=== PATIENT | male | born 1980 | race Caucasian/White ===

== ENCOUNTER 2017-03-14 02:06 | Emergency (ER) | payer MEDICAID ==
[~2017-03-14] VITALS: Ht 165.1 cm; Wt 90.7 kg
[~2017-03-14 02:06] MED LIST: DICL75TA2; DOXY-233 PO; DOXY100C42 PO; ESOM10SU; GABA100C PO; HYDR-3816 PO; HYDR-757 PO; LORA10TA7; LRT10T; OMEP40CA36; PROP40TA5; SULF-222; TRAM50TA2 PO; VALA500T4
[2017-03-14 02:32] LABS: KETONES,URINE NEGATIVE (NEGATIVE); LEUKOCYTE ESTERASE ,URINE NEGATIVE (NEGATIVE); NITRITE,URINE NEGATIVE (NEGATIVE); PH,URINE 5 (5-9); PROTEIN,URINE 2+ (NEGATIVE); UROBILINOGEN,URINE 1 MG/DL (NORMAL)
[2017-03-14 02:40] LABS: BILIRUBIN,URINE 1+ (NEGATIVE); CALCIUM OXALATE CRYSTALS,UR LARGE /LPF
[2017-03-14] MEDS ORDERED: KETOROLAC 30 MG/ML VIAL IVP STA (02:45)
[2017-03-14] MEDS ORDERED: LACTATED RINGERS 1,000 ML IV ONE (02:45)
[2017-03-14] MEDS ORDERED: ONDANSETRON 4 MG/2 ML (SDV) Z0FRAN IVP ONE (02:45)
--- NOTE | 2017-03-14 02:45 | ED GU-Male ---
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, patient reports developing pain in his LLQ into his L testicle Source: patient History of Present Illness Time seen by provider: 02:18 Initial Comments PT STATES HE HAS BEEN MASTURBATING ALOT THE LAST COUPLE OF DAYS--AT LEAST 2-3 TIMES A DAY--WHICH HE FREQUENTLY DOES TONIGHT, DURING AND IMMEDIATELY AFTERWARD, HE BEGAN TO HAVE SEVERE PAIN IN LLQ AND LEFT TESTICLE --1 1/2-2 HOURS AGO PAIN IN TESTICLE IS GONE AT THIS TIME, BUT STILL HAS PAIN IN LLQ--PAIN IS NOT SEVERE RIGHT NOW IT WAS WHEN PAIN WAS SEVERE, HE HAD NAUSEA AND SWEATS AND "IT ALMOST MADE ME PASS OUT" HAS HAD SOME BURNING ON URINATION AND IS ONLY ABLE TO VOID VERY SMALL AMOUNTS OR NOT AT ALL, HAS URGENCY AND FREQUENCY STATES HE HAS HAD EPIDIDYMITIS IN THE PAST--FELT TO BE DUE TO FREQUENT MASTURBATION, PER PT. 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 HUDSON Allergies and Home Medications Allergies Coded Allergies: NKANo Known Allergies (Unverified Allergy, Mild, 04/23/09) Home Medications Diclofenac Sodium 75 Mg Tablet., #60 (Reported) Gabapentin 100 Mg Capsule, 1 EACH PO BID, (Reported) Hydrocodone Bit/Acetaminophen 1 Tab Tablet, 1 TAB PO Q6H PRN for PAIN, #10 Prescribed by: TOMER SANTOS on 09/22/14 0745 Loratadine 10 Mg Tablet, #30 (Reported) Omeprazole 40 Mg Capsule., #30 (Reported) Propranolol Hcl 40 Mg Tablet, #60 (Reported) Tramadol Hcl 50 Mg Tablet, 50 MG PO Q4H PRN for PAIN, #10 Ref 0 Prescribed by: FAUSTO SAL on 10/31/14 1729 Trimethoprim/Sulfamethoxazole 1 Ea Tablet, #28 (Reported) Constitutional: see HPI, diaphoresis Respiratory: no symptoms reported Cardiovascular: no symptoms reported Gastrointestinal: LLQ, see HPI, abdominal pain, nausea, No vomiting Genitourinary: see HPI, burning, dysuria, frequency, denies flank pain, pain, urgency Musculoskeletal: no symptoms reported Skin: no symptoms reported Psychiatric/Neurological: No Symptoms Reported Endocrine: No Symptoms Reported Hematologic/Lymphatic: No Symptoms Reported Past Yvuoytf-Ponkiw-[place] Hx Patient Social History Alcohol Use: Denies Use Recreational Drug Use: No Smoking Status: Never a Smoker Recent Foreign Travel: No Contact w/Someone Who Travel: No Recent Infectious Disease Expo: No Immunizations Up To Date Tetanus Booster (TDap): Unknown Surgeries HX Surgeries: Yes Surgeries: Vasectomy Respiratory Hx Respiratory Disorders: No Cardiovascular Hx Cardiac Disorders: No Neurological Hx Neurological Disorders: No Reproductive System Hx Reproductive Disorders: No Sexually Transmitted Disease: No HIV/AIDS: No Genitourinary Hx Genitourinary Disorders: Yes (EPIDIDYMITIS) Gastrointestinal Hx Gastrointestinal Disorders: Yes (IBS) Gastrointestinal Disorders: Gastroesophageal Reflux, Irritable Bowel Musculoskeletal Hx Musculoskeletal Disorders: No Endocrine Hx Endocrine Disorders: No HEENT HX ENT Disorders: No Cancer Hx Cancer: No Psychosocial Hx Psychiatric Problems: No Integumentary HX Skin/Integumentary Disorder: No Blood Transfusions Hx Blood Disorders: No Adverse Reaction to a Blood Tr: No Physical Exam Vital Signs Vital Sign - Last 12Hours 03/14/17 02:15 Temp 96.8 Pulse 82 Resp 18 B/P (MAP) 146/113 Pulse Ox 98 Capillary Refill : Less Than 3 Seconds General Appearance: other (MALODOROUS, PACING, HOLDING LLQ) Neck: normal inspection Cardiovascular: regular rate, rhythm, no murmur Respiratory: normal breath sounds, no respiratory distress, no accessory muscle use Gastrointestinal: normal bowel sounds, soft, tenderness (LLQ) Back: normal inspection Extremities: normal inspection 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, no motor/sensory deficits, alert, oriented x 3 Skin: normal color, warm/dry, tattoos/piercings (EXTENSIVE TATTOOS) Progress/Results/Core Measures Results/Orders Lab Results Laboratory Tests Test 03/14/17 02:22 03/14/17 03:00 Range/Units Urine Color YELLOW Urine Clarity CLEAR Urine pH 5 5-9 Urine Specific [place] 1.030 H 1.016-1.022 Urine Protein 2+ H NEGATIVE Urine Glucose (UA) NEGATIVE NEGATIVE Urine Ketones NEGATIVE NEGATIVE Urine Nitrite NEGATIVE NEGATIVE Urine Bilirubin 1+ H NEGATIVE Urine Urobilinogen 1 NORMAL MG/DL Urine Leukocyte Esterase NEGATIVE NEGATIVE Urine RBC (Auto) 3+ H NEGATIVE Urine RBC 10-25 H /HPF Urine WBC NONE /HPF Urine Squamous Epithelial Cells 2-5 /HPF Urine Crystals PRESENT H /LPF Urine Calcium Oxalate Crystals LARGE H /LPF Urine Bacteria NEGATIVE /HPF Urine Casts NONE /LPF Urine Mucus NEGATIVE /LPF Urine Culture Indicated NO White Blood Count 10.7 4.3-11.0 10^3/uL Red Blood Count 5.13 4.35-5.85 10^6/uL Hemoglobin 16.0 13.3-17.7 G/DL Hematocrit 47 40-54 % Mean Corpuscular Volume 91 80-99 FL Mean Corpuscular Hemoglobin 31 25-34 PG Mean Corpuscular Hemoglobin Concent 34 32-36 G/DL Red Cell Distribution Width 13.4 10.0-14.5 % Platelet Count 345 130-400 10^3/uL Mean Platelet Volume 10.3 7.4-10.4 FL Neutrophils (%) (Auto) 76 H 42-75 % Lymphocytes (%) (Auto) 14 12-44 % Monocytes (%) (Auto) 9 0-12 % Eosinophils (%) (Auto) 0 0-10 % Basophils (%) (Auto) 0 0-10 % Neutrophils # (Auto) 8.2 H 1.8-7.8 X 10^3 Lymphocytes # (Auto) 1.5 1.0-4.0 X 10^3 Monocytes # (Auto) 0.9 0.0-1.0 X 10^3 Eosinophils # (Auto) 0.0 0.0-0.3 10^3/uL Basophils # (Auto) 0.0 0.0-0.1 10^3/uL Sodium Level 139 135-145 MMOL/L Potassium Level 5.4 H 3.6-5.0 MMOL/L Chloride Level 107 98-107 MMOL/L Carbon Dioxide Level 20 L 21-32 MMOL/L Anion Gap 12 5-14 MMOL/L Blood Urea Nitrogen 11 7-18 MG/DL Creatinine 1.30 0.60-1.30 MG/DL Estimat Glomerular Filtration Rate > 60 BUN/Creatinine Ratio 8 Glucose Level 154 H 70-105 MG/DL Calcium Level 8.7 8.5-10.1 MG/DL Total Bilirubin 0.5 0.1-1.0 MG/DL Aspartate Amino Transf (AST/SGOT) 27 5-34 U/L Alanine Aminotransferase (ALT/SGPT) 20 0-55 U/L Alkaline Phosphatase 65 40-136 U/L Total Protein 7.7 6.4-8.2 GM/DL Albumin 4.1 3.2-4.5 GM/DL Amylase Level 40 25-125 U/L Lipase 31 8-78 U/L My Orders Orders - HAILEE CRONIN DO Ua Culture If Indicated (03/14/17 02:18) Ct Abd/Pelvis Wo(Kidney Stone) (03/14/17 02:45) Amylase (03/14/17 02:45) Cbc With Automated Diff (03/14/17 02:45) Comprehensive Metabolic Panel (03/14/17 02:45) Lipase (03/14/17 02:45) Acute Abd Series (03/14/17 02:45) Ketorolac Injection (Toradol Injection) (03/14/17 02:45) Ondansetron Injection (Zofran Injectio (03/14/17 02:45) Saline Lock/Iv-Start (03/14/17 02:45) Lactated Ringers (Lr 1000 Ml Iv Solution (03/14/17 02:45) Medications Given in ED Current Medications Medications Dose Ordered Sig/Rajni Route Start Time Stop Time Status Last Admin Dose Admin Lactated Ringer's 1,000 ml @ 0 mls/hr Q0M ONCE IV 03/14/17 02:45 03/14/17 03:47 DC 03/14/17 03:19 0 MLS/HR Ondansetron HCl 4 mg ONCE ONCE IVP 03/14/17 02:45 03/14/17 03:47 DC 03/14/17 03:19 4 MG Vital Signs/I&O Vital Sign - Last 12Hours 03/14/17 03/14/17 02:15 03:58 Temp 96.8 Pulse 82 84 Resp 18 18 B/P (MAP) 146/113 Pulse Ox 98 97 Blood Pressure Mean: 124 Progress Note : Progress Note PAIN SPONTANEOUSLY WENT AWAY SHORTLY AFTER ARRIVAL Diagnostic Imaging Comments ACUTE ABDOMEN XRAYS--CALCIFICATION IN LEFT PELVIS, PENDING RADIOLOGIST REVIEW CT ABDOMEN/PELVIS--MILD LEFT HYDRONEPHROSIS, WITH 2 MM CALCULUS IN BLADDER--PER [facility] VIA FAX @ [phone] Reviewed: Reviewed by Me Departure Impression Impression: Primary Impression: PASSED LEFT KIDNEY STONE Disposition: HOME, SELF-CARE Condition: Improved Departure-Patient Inst. Referrals: [facility] (PCP/Family) Primary Care Physician Patient Instructions: Kidney Stones (DC) Add. Discharge Instructions: STRAIN ALL URINE--RETURN ANY STONES TO YOUR DR'S OFFICE LOTS OF CLEAR LIQUIDS--DRINK ENOUGH SO YOU ARE URINATING EVERY 2 HOURS WHILE AWAKE FOLLOW UP WITH YOUR DR NEEDED All discharge instructions reviewed with patient and/or family. Voiced understanding. HAILEE CRONIN DO Mar 14, 2017 02:44
[2017-03-14 03:08] LABS: BASOPHILS % (AUTO) 0 % (0-10); EOSINOPHILS % (AUTO) 0 % (0-10); LYMPHOCYTES # (AUTO) 1.5 X 10^3 (1.0-4.0); LYMPHOCYTES % (AUTO) 14 % (12-44); MEAN CORPUSCULAR HEMOGLOBIN 31 PG (25-34); MEAN CORPUSCULAR HGB CONC 34 G/DL (32-36); MEAN CORPUSCULAR VOLUME 91 FL (80-99); MEAN PLATELET VOLUME 10.3 FL (7.4-10.4); MONOCYTES # (AUTO) 0.9 X 10^3 (0.0-1.0); MONOCYTES % (AUTO) 9 % (0-12); NEUTROPHILS # (AUTO) 8.2 X 10^3 (1.8-7.8); NEUTROPHILS % (AUTO) 76 % (42-75); PLATELET COUNT 345 10^3/uL (130-400); RED BLOOD COUNT 5.13 10^6/uL (4.35-5.85); RED CELL DISTRIBUTION WIDTH 13.4 % (10.0-14.5); WHITE BLOOD COUNT 10.7 10^3/uL (4.3-11.0)
[2017-03-14 03:30] LABS: ALANINE AMINOTRANSFERASE 20 U/L (0-55); ALBUMIN 4.1 GM/DL (3.2-4.5); AMYLASE 40 U/L (25-125); ANION GAP 12 MMOL/L (5-14); ASPARTATE AMINO TRANSFERASE 27 U/L (5-34); BILIRUBIN,TOTAL 0.5 MG/DL (0.1-1.0); BLOOD UREA NITROGEN 11 MG/DL (7-18); BUN/CREATININE RATIO 8; CALCIUM 8.7 MG/DL (8.5-10.1); CARBON DIOXIDE 20 MMOL/L (21-32); CHLORIDE 107 MMOL/L (98-107); GFR ESTIMATED > 60; GLUCOSE 154 MG/DL (70-105); LIPASE 31 U/L (8-78); POTASSIUM 5.4 MMOL/L (3.6-5.0); SODIUM 139 MMOL/L (135-145); TOTAL PROTEIN 7.7 GM/DL (6.4-8.2)
[2017-03-14 03:58] VITALS: BP 132/84
--- NOTE | 2017-03-14 05:42 | Diagnostic Imaging Report ---
EXAM: ACUTE ABD SERIES INDICATION: Pain in left testicle. COMPARISON: Chest radiographs 03/29/2007. FINDINGS: Normal heart size and pulmonary vascularity. Lungs are well expanded. No focal pulmonary opacity, pleural effusion or pneumothorax. Osseous structures are unremarkable. No free intraperitoneal air. Nonspecific bowel gas pattern. IMPRESSION: No acute cardiopulmonary or abdominal radiographic findings. Dictated by: Dictated on workstation # [id number]
--- NOTE | 2017-03-14 06:30 | Diagnostic Imaging Report ---
PROCEDURE: CT urinary tract, rule out kidney stone. TECHNIQUE: Multiple contiguous axial images were obtained through the abdomen and pelvis without the use of intravenous contrast. INDICATION: Pain extending into the left scrotum. Unenhanced images of the liver reveal occasional calcifications posteriorly in the right lobe which are likely due to granulomas. There is no evidence of focal splenic abnormality. Gallbladder, pancreas and adrenal glands are unremarkable. Right kidney also has a normal appearance. Left kidney demonstrates mild prominence of the left renal collecting system and ureter without evidence of ureteric stone. There is a tiny calculus measuring 0.2 cm in size in the dependent portion of the bladder. There is no evidence of appendiceal inflammation. Dystrophic calcification is noted within the left inguinal canal. There are also prostatic calcifications. No pathologic adenopathy is identified. IMPRESSION: Mild prominence of the left renal collecting system and ureter with 0.2 cm bladder stone. This may represent recently passed stone from the left ureter. Otherwise, no acute abnormality is detected. Dictated by: Dictated on workstation # [id number]
== END 2017-03-14 03:58 | disposition home or self-care (01) ==
LOC: EDUNIT# 02:06 → ER 02:09
DX: N20.0 Calculus of kidney (principal); K21.9 Gastro-esophageal reflux disease without esophagitis; Z87.19 Personal history of other diseases of the digestive system; Z98.52 Vasectomy status
CPT/HCPCS: 36415; 74022; 74176; 80053; 81000; 82150; 83690; 85025

== ENCOUNTER 2018-03-26 17:50 | Emergency (ER) | payer MEDICAID ==
[~2018-03-26] VITALS: Ht 165.1 cm; Wt 94.8 kg
[2018-03-26 18:26] LABS: BILIRUBIN,URINE NEGATIVE (NEGATIVE); CLARITY,URINE CLEAR; COLOR,URINE YELLOW; GLUCOSE, URINE (UA) NEGATIVE (NEGATIVE); KETONES,URINE NEGATIVE (NEGATIVE); LEUKOCYTE ESTERASE ,URINE NEGATIVE (NEGATIVE); NITRITE,URINE NEGATIVE (NEGATIVE); PH,URINE 8 (5-9); PROTEIN,URINE NEGATIVE (NEGATIVE); UROBILINOGEN,URINE NORMAL (NORMAL)
[2018-03-26 18:40] LABS: AMORPHOUS SEDIMENT,UR MOD AMOR PHOSPHATE /LPF
[2018-03-26] MEDS ORDERED: NS IV 1000 ML 1,000 ML IV SCH (19:00)
[2018-03-26] MEDS ORDERED: KETOROLAC 30 MG/ML VIAL IVP ONE (19:00)
--- NOTE | 2018-03-26 19:28 | Diagnostic Imaging Report ---
PATIENT HISTORY: Left flank pain. No hematuria. History of kidney stones. TECHNIQUE: Single frontal view of the abdomen. COMPARISON: CT from the same day. FINDINGS: The bowel loops are nondistended without evidence of obstruction. A small amount of stool is seen in the colon. There is no large collection of free air. Osseous structures are unremarkable. The small obstructing calculus in the distal left ureter is not seen on this exam. IMPRESSION: No evidence of bowel obstruction. The small obstructing calculus in the distal left ureter is better seen on the CT from the same day. Dictated by: Dictated on workstation # [id number]
--- NOTE | 2018-03-26 19:33 | Diagnostic Imaging Report ---
EXAMINATION: CT abdomen and pelvis without contrast dated 03/26/2018. TECHNIQUE: Multiple contiguous axial images were obtained through the abdomen and pelvis without the use of intravenous contrast. INDICATION: Left flank pain. No hematuria. Prior history of kidney stones. COMPARISON: 03/14/2017. FINDINGS: There is an approximately 3 mm stone in the distal left ureter proximal to the UVJ. There is left-sided moderate hydroureteronephrosis. Fat stranding and fluid about the left kidney noted. Left kidney is overall prominent size compared to the right. No nephrolithiasis is seen. No hydronephrosis on the right with no ureteral stone seen on the right. Otherwise, the nonopacified abdominal viscera are limited due to the lack of IV contrast. No definite acute abnormality is appreciated within the liver, spleen, or adrenal glands. The pancreas is unremarkable. Gallbladder is within normal limits. Small rounded density anterior to the spleen most likely a splenule and stable from previous. There is no free air in the abdomen or pelvis. The appendix is unremarkable with no surrounding inflammatory changes noted. There is no free fluid in the pelvis. Calcifications seen throughout the prostate gland. Urinary bladder is decompressed. Minimal wall thickening likely due to the underdistention with cystitis also possible, correlate clinically. There is a focal calcification nonspecific in nature along the left inguinal canal. This is stable from previous imaging. Osseous structures demonstrate degenerative findings. Lung bases demonstrate linear areas of atelectasis or scar. IMPRESSION: 1. 3 mm stone in the distal left ureter proximal to the UVJ causing moderate left hydroureteronephrosis with fat stranding and minimal fluid about an enlarged left kidney. 2. Other incidental findings as noted above. Dictated by: Dictated on workstation # [id number]
[2018-03-26 20:01] LABS: BASOPHILS % (AUTO) 0 % (0-10); EOSINOPHILS % (AUTO) 0 % (0-10); HEMATOCRIT 43 % (40-54); HEMOGLOBIN 15.1 G/DL (13.3-17.7); LYMPHOCYTES # (AUTO) 0.5 X 10^3 (1.0-4.0); LYMPHOCYTES % (AUTO) 3 % (12-44); MEAN CORPUSCULAR HEMOGLOBIN 32 PG (25-34); MEAN CORPUSCULAR HGB CONC 35 G/DL (32-36); MEAN CORPUSCULAR VOLUME 91 FL (80-99); MEAN PLATELET VOLUME 9.2 FL (7.4-10.4); MONOCYTES # (AUTO) 0.9 X 10^3 (0.0-1.0); MONOCYTES % (AUTO) 7 % (0-12); NEUTROPHILS # (AUTO) 13.1 X 10^3 (1.8-7.8); NEUTROPHILS % (AUTO) 90 % (42-75); PLATELET COUNT 331 10^3/uL (130-400); RED BLOOD COUNT 4.78 10^6/uL (4.35-5.85); RED CELL DISTRIBUTION WIDTH 12.9 % (10.0-14.5); WHITE BLOOD COUNT 14.5 10^3/uL (4.3-11.0)
[2018-03-26 20:25] LABS: ALBUMIN 3.9 GM/DL (3.2-4.5); BILIRUBIN,TOTAL 0.6 MG/DL (0.1-1.0); CALCIUM 8.6 MG/DL (8.5-10.1); CREATININE SERUM 1.44 MG/DL (0.60-1.30); POTASSIUM 4.3 MMOL/L (3.6-5.0); TOTAL PROTEIN 6.7 GM/DL (6.4-8.2)
[2018-03-26 20:33] LABS: BAND NEUTROPHILS 1 %; BASOPHILS % (MANUAL) 0 %; EOSINOPHILS % (MANUAL) 0 %; LYMPHOCYTES % (MANUAL) 2 %; MONOCYTES % (MANUAL) 9 %; NEUTROPHILS % (MANUAL) 88 %; RBC MORPH NORMAL
[2018-03-26] MEDS ORDERED: CEPH-507 PO (20:36)
--- NOTE | 2018-03-26 20:36 | ED GU-Male ---
General Chief Complaint: -Male Stated Complaint: KIDNEY STONES, KINDEY PRESSURE Nursing Triage Note: PATIENT WAS SEEN BY [facility] TODAY. STATES HE HAS KIDNEY STONES AND [facility] GAVE HIM A SCRIPT FOR FLOMAX AND ZOFRAN WHICH HE STATES HE WILL NOT BE ABLE TO FILL UNTIL FRIDAY. HE IS HERE BECAUSE HE STATES HIS PAIN IS WORSE AND HE NEEDS RELIEF. Source: patient Exam Limitations: no limitations History of Present Illness Date Seen by Provider: Mar 26, 2018 Time Seen by Provider: 18:30 Initial Comments 37-year-old male who presents to the emergency room with complaints of kidney stone. He reports he had a diagnosis of kidney stone at [facility] today and they gave him a prescription for Flomax, Zofran and he was instructed to use his hydrocodone that he has home for pain. He states that he did not have time to get the prescription filled at [facility] and reports that he will not have the prescription filled due to finances until Friday. He states that his real concern is his pain is worse and he needs relief. Timing/Duration: this morning Severity/Quality: moderate Location: left flank Radiation: LLQ Associated Symptoms: No fever/chills, No loss of bladder control, No lower back pain Allergies and Home Medications Allergies Coded Allergies: NKANo Known Allergies (Unverified Allergy, Mild, 04/23/09) Home Medications Cephalexin 500 Mg Capsule, 500 MG PO BID Prescribed by: MARY MOYA on 03/26/182035 Gabapentin 100 Mg Capsule, 1 EACH PO BID, (Reported) Hydrocodone Bit/Acetaminophen 1 Tab Tablet, 1 TAB PO Q6H PRN for PAIN Prescribed by: TOMER SANTOS on 09/22/14 0745 Tramadol Hcl 50 Mg Tablet, 50 MG PO Q4H PRN for PAIN Prescribed by: FAUSTO SAL on 10/31/14 1729 Patient Home Medication List Home Medication List Reviewed: Yes Review of Systems Constitutional: see HPI; No chills, No fever Gastrointestinal: LLQ, see HPI Genitourinary: see HPI, flank pain All Other Systemes Reviewed Negative Unless Noted: Yes Past Uxcxyaq-Htumsh-Rzmmlk Hx Past Med/Social Hx: Reviewed Nursing Past Med/Soc Hx Patient Social History Alcohol Use: Denies Use Recreational Drug Use: No Smoking Status: Never a Smoker 2nd Hand Smoke Exposure: No Recent Foreign Travel: No Contact w/Someone Who Travel: No Recent Infectious Disease Expo: No Immunizations Up To Date Tetanus Booster (TDap): Unknown Past Medical History Surgeries: Yes Vasectomy Respiratory: No Cardiac: No Neurological: No Reproductive Disorders: No Sexually Transmitted Disease: No HIV/AIDS: No Gastrointestinal: Yes (IBS) Gastroesophageal Reflux, Irritable Bowel Musculoskeletal: No Endocrine: No Cancer: No Psychosocial: No Integumentary: No Blood Disorders: No Adverse Reaction/Blood Tranf: No Family Medical History Reviewed Nursing Family Hx Physical Exam Vital Signs Vital Signs - First Documented 03/26/18 17:55 Temp 98.0 Pulse 82 Resp 18 B/P (MAP) 128/92 (104) Pulse Ox 97 O2 Delivery Room Air Capillary Refill : Less Than 3 Seconds Height, Weight, BMI Height: 5'5.00" Weight: 209lbs. 0oz. 94.012746lp; 33.28 BMI Method:Stated General Appearance: WD/WN, no apparent distress Cardiovascular: normal peripheral pulses, regular rate, rhythm, no edema, no gallop, no JVD, no murmur Respiratory: chest non-tender, lungs clear, normal breath sounds, no respiratory distress, no accessory muscle use Gastrointestinal: normal bowel sounds, non tender, soft, no organomegaly, no pulsatile mass Back: normal inspection, no vertebral tenderness, CVA tenderness (L) (patient has left-sided CVA tenderness on palpation, the pain does radiate to his left flank area on palpation.) Neurologic/Psychiatric: alert, normal mood/affect, oriented x 3 Progress/Results/Core Measures Suspected Sepsis Recent Fever Within 48 Hours: No Infection Criteria Present: None New/Unexplained Altered Menta: No Sepsis Screen: No Definite Risk SIRS Temperature:98.0 Pulse: 82 Respiratory Rate: 18 Laboratory Tests 03/26/18 19:55: White Blood Count 14.5H Blood Pressure 128 /92 Mean: 104 Laboratory Tests 03/26/18 19:55: Creatinine 1.44H, Platelet Count 331, Total Bilirubin 0.6 Results/Orders Lab Results Laboratory Tests Test 03/26/18 18:12 03/26/18 19:55 Range/Units Urine Color YELLOW Urine Clarity CLEAR Urine pH 8 5-9 Urine Specific Raymond 1.010 L 1.016-1.022 Urine Protein NEGATIVE NEGATIVE Urine Glucose (UA) NEGATIVE NEGATIVE Urine Ketones NEGATIVE NEGATIVE Urine Nitrite NEGATIVE NEGATIVE Urine Bilirubin NEGATIVE NEGATIVE Urine Urobilinogen NORMAL NORMAL MG/DL Urine Leukocyte Esterase NEGATIVE NEGATIVE Urine RBC (Auto) 3+ H NEGATIVE Urine RBC 10-25 H /HPF Urine WBC NONE /HPF Urine Crystals PRESENT H /LPF Urine Amorphous Sediment MOD SAMANTHA PHOSPHATE H /LPF Urine Bacteria NONE /HPF Urine Casts NONE /LPF Urine Mucus NEGATIVE /LPF Urine Culture Indicated NO White Blood Count 14.5 H 4.3-11.0 10^3/uL Red Blood Count 4.78 4.35-5.85 10^6/uL Hemoglobin 15.1 13.3-17.7 G/DL Hematocrit 43 40-54 % Mean Corpuscular Volume 91 80-99 FL Mean Corpuscular Hemoglobin 32 25-34 PG Mean Corpuscular Hemoglobin Concent 35 32-36 G/DL Red Cell Distribution Width 12.9 10.0-14.5 % Platelet Count 331 130-400 10^3/uL Mean Platelet Volume 9.2 7.4-10.4 FL Neutrophils (%) (Auto) 90 H 42-75 % Lymphocytes (%) (Auto) 3 L 12-44 % Monocytes (%) (Auto) 7 0-12 % Eosinophils (%) (Auto) 0 0-10 % Basophils (%) (Auto) 0 0-10 % Neutrophils # (Auto) 13.1 H 1.8-7.8 X 10^3 Lymphocytes # (Auto) 0.5 L 1.0-4.0 X 10^3 Monocytes # (Auto) 0.9 0.0-1.0 X 10^3 Eosinophils # (Auto) 0.0 0.0-0.3 10^3/uL Basophils # (Auto) 0.0 0.0-0.1 10^3/uL Neutrophils % (Manual) 88 % Lymphocytes % (Manual) 2 % Monocytes % (Manual) 9 % Eosinophils % (Manual) 0 % Basophils % (Manual) 0 % Band Neutrophils 1 % Blood Morphology Comment NORMAL Sodium Level 136 135-145 MMOL/L Potassium Level 4.3 3.6-5.0 MMOL/L Chloride Level 103 98-107 MMOL/L Carbon Dioxide Level 22 21-32 MMOL/L Anion Gap 11 5-14 MMOL/L Blood Urea Nitrogen 12 7-18 MG/DL Creatinine 1.44 H 0.60-1.30 MG/DL Estimat Glomerular Filtration Rate 55 BUN/Creatinine Ratio 8 Glucose Level 122 H 70-105 MG/DL Calcium Level 8.6 8.5-10.1 MG/DL Corrected Calcium 8.7 8.5-10.1 MG/DL Total Bilirubin 0.6 0.1-1.0 MG/DL Aspartate Amino Transf (AST/SGOT) 17 5-34 U/L Alanine Aminotransferase (ALT/SGPT) 15 0-55 U/L Alkaline Phosphatase 52 40-136 U/L Total Protein 6.7 6.4-8.2 GM/DL Albumin 3.9 3.2-4.5 GM/DL Amylase Level 50 25-125 U/L Lipase 23 8-78 U/L My Orders Orders - MARY MOYA Ct Abd/Pelvis Wo(Kidney Stone) (03/26/18 18:48) Abdomen/Kub 1view (03/26/18 18:48) Saline Lock/Iv-Start (03/26/18 18:48) Chlamydia Trachomatis Urine (03/26/18 18:48) Neis Gibran Dna Urine Test (03/26/18 18:48) Cbc With Automated Diff (03/26/18 18:48) Comprehensive Metabolic Panel (03/26/18 18:48) Amylase (03/26/18 18:48) Lipase (03/26/18 18:48) Saline Lock/Iv-Start (03/26/18 18:55) Ns Iv 1000 Ml (Sodium Chloride 0.9%) (03/26/18 19:00) Ketorolac Injection (Toradol Injection) (03/26/18 19:00) Manual Differential (03/26/18 19:55) Rx-Ondansetron Po (Rx-Zofran Po) (03/26/18 20:37) Ceftriaxone Injection (Rocephin Injectio (03/26/18 20:45) Medications Given in ED Vital Signs/I&O 03/26/18 03/26/18 17:55 21:10 Temp 98.0 98.0 Pulse 82 82 Resp 18 18 B/P (MAP) 128/92 (104) 128/92 (104) Pulse Ox 97 97 O2 Delivery Room Air Capillary Refill : Less Than 3 Seconds Blood Pressure Mean: 104 Progress Note : Progress Note I have informed the patient of his imaging studies and laboratory findings. He agrees with plans of discharge, close follow up with [facility] and Dr. Lewis, and return precautions. He was instructed to continue all previous medications in addition to the abx that I have prescribed. Diagnostic Imaging Diagonstic Imaging: Xray, CT Plain Films/CT/US/NM/MRI: abdomen, pelvis Comments NAME: ROMY QUEVEDO [facility] REC#: [id number] PT STATUS: REG ER : 1980 PHYSICIAN: MARY MOYA ADMIT DATE: 03/26/18/ER Signed Date of Exam: 03/26/18 CT ABD/PELVIS WO(KIDNEY STONE) EXAMINATION: CT abdomen and pelvis without contrast dated 03/26/2018. TECHNIQUE: Multiple contiguous axial images were obtained through the abdomen and pelvis without the use of intravenous contrast. INDICATION: Left flank pain. No hematuria. Prior history of kidney stones. COMPARISON: 03/14/2017. FINDINGS: There is an approximately 3 mm stone in the distal left ureter proximal to the UVJ. There is left-sided moderate hydroureteronephrosis. Fat stranding and fluid about the left kidney noted. Left kidney is overall prominent size compared to the right. No nephrolithiasis is seen. No hydronephrosis on the right with no ureteral stone seen on the right. Otherwise, the nonopacified abdominal viscera are limited due to the lack of IV contrast. No definite acute abnormality is appreciated within the liver, spleen, or adrenal glands. The pancreas is unremarkable. Gallbladder is within normal limits. Small rounded density anterior to the spleen most likely a splenule and stable from previous. There is no free air in the abdomen or pelvis. The appendix is unremarkable with no surrounding inflammatory changes noted. There is no free fluid in the pelvis. Calcifications seen throughout the prostate gland. Urinary bladder is decompressed. Minimal wall thickening likely due to the underdistention with cystitis also possible, correlate clinically. There is a focal calcification nonspecific in nature along the left inguinal canal. This is stable from previous imaging. Osseous structures demonstrate degenerative findings. Lung bases demonstrate linear areas of atelectasis or scar. IMPRESSION: 1. 3 mm stone in the distal left ureter proximal to the UVJ causing moderate left hydroureteronephrosis with fat stranding and minimal fluid about an enlarged left kidney. 2. Other incidental findings as noted above. Dictated by: Dictated on workstation # [id number] Dict: 03/26/181919 Trans: 03/26/182010 Interpreted by: ANEUDY BENITES MD Electronically signed by: ANEUDY BENITES MD 03/26/182010 NAME: ROMY QUEVEDO [facility] REC#: [id number] PT STATUS: REG ER : 1980 PHYSICIAN: MARY MOYA ADMIT DATE: 03/26/18/ER Signed Date of Exam: 03/26/18 ABDOMEN/KUB 1VIEW PATIENT HISTORY: Left flank pain. No hematuria. History of kidney stones. TECHNIQUE: Single frontal view of the abdomen. COMPARISON: CT from the same day. FINDINGS: The bowel loops are nondistended without evidence of obstruction. A small amount of stool is seen in the colon. There is no large collection of free air. Osseous structures are unremarkable. The small obstructing calculus in the distal left ureter is not seen on this exam. IMPRESSION: No evidence of bowel obstruction. The small obstructing calculus in the distal left ureter is better seen on the CT from the same day. Dictated by: Dictated on workstation # [id number] Dict: 03/26/181921 Trans: 03/26/182009 Interpreted by: XANDER VÁSQUEZ MD Electronically signed by: XANDER VÁSQUEZ MD 03/26/182009 Reviewed: Reviewed by Ri Departure Impression Primary Impression: Kidney stones Disposition: 01 HOME, SELF-CARE Condition: Stable/Unchanged Departure-Patient Inst. Decision time for Depature: 20:34 Referrals: [facility] (PCP/Family) Primary Care Physician JADYN LEWIS MD Patient Instructions: Kidney Stones (DC) Add. Discharge Instructions: Take medications as directed. Continue to use the medications that were prescribed by [facility] and your pain medications that you have at home. Strain all urines until the stone passes. Follow-up with [facility] within 1 week for recheck. Follow-up with Dr. Lewis within 1 week for recheck. Return back to the emergency room for any worsening symptoms or any concerns as needed. All discharge instructions reviewed with patient and/or family. Voiced understanding. Scripts Cephalexin (Keflex) 500 Mg Capsule 500 MG PO BID for 7 Days, #14 CAP Prov: MARY MOYA 03/26/18 MARY MOYA Mar 26, 2018 20:36
[2018-03-26] MEDS ORDERED: RX-ONDANSETRON 4 MG ODT (ZOFRAN) PPK #4 PO STA (20:37)
[2018-03-26] MEDS ORDERED: cefTRIAXone INJECTION 1,000 MG in NS (IVPB) 50 ML IV ONE (20:45)
[2018-03-26 21:10] VITALS: BP 128/92
== END 2018-03-26 21:19 | disposition home or self-care (01) ==
LOC: EDUNIT# 17:50 → ER 17:51
DX: N20.0 Calculus of kidney (principal); K21.9 Gastro-esophageal reflux disease without esophagitis; Z98.52 Vasectomy status; Z87.19 Personal history of other diseases of the digestive system
CPT/HCPCS: 36415; 74018; 74176; 80053; 81000; 82150; 83690; 85007; 85027; 87491; 87591; 96361; 96374; 96375

== ENCOUNTER 2020-04-04 10:45 | Outpatient (RCR) | payer MEDICAID ==
[~2020-04-04] VITALS: Ht 165.1 cm; Wt 90.9 kg
[~2020-04-04 10:45] MED LIST changes: +CEPH-507 PO
[2020-04-04] MEDS ORDERED: OMEP40CA27 PO (11:02)
[2020-04-04] MEDS ORDERED: CETI10TA17 PO (11:03)
[2020-04-06] MEDS ORDERED: HYDR-3812 PO (09:31)
== END 2020-04-04 11:11 | disposition home or self-care (01) ==
LOC: PREOP 10:45
PROVIDERS: ATTEND Surgery
DX: Z01.818 Encounter for other preprocedural examination (principal)

== ENCOUNTER 2020-04-06 08:08 | Day surgery (SDC) | payer MEDICAID ==
[2020-04-06] VITALS (9 sets, daily range): BP systolic 117–137; BP diastolic 71–103
[~2020-04-06] VITALS: Ht 165.1 cm; Wt 90.9 kg
[~2020-04-06 08:08] MED LIST changes: +CETI10TA17 PO; +OMEP40CA27 PO
[2020-04-06] MEDS ORDERED: MIDAZOLAM 2 MG/2 ML (VERSED) VIAL IV ONE (08:45)
[2020-04-06] MEDS: LACTATED RINGERS 1,000 ML IV PRN ×2 (08:57→09:50)
[2020-04-06] MEDS ORDERED: MIDAZOLAM 2 MG/2 ML (VERSED) VIAL ONE (08:57)
[2020-04-06] MEDS ORDERED: BUP/EPI 0.5% 1:200,000 (MARCAINE) 10ML VIAL IJ ONE (08:59)
[2020-04-06] MEDS ORDERED: ceFAZolin 2 GM IV Premixed 50 ML IV ONE (09:00)
[2020-04-06] MEDS ORDERED: ceFAZolin 2 GM IV Premixed 50 ML ONE (09:04)
--- NOTE | 2020-04-06 09:06 | Progress Note-Pre Operative ---
Pre-Operative Progress Note H&P Reviewed The H&P was reviewed, patient examined and no changes noted. Date Seen by Provider: Apr 06, 2020 Time Seen by Provider: 09:06 Date H&P Reviewed: Apr 06, 2020 Time H&P Reviewed: 09:06 Pre-Operative Diagnosis: umbilical hernia ERIK AUSTIN DO Apr 06, 2020 09:06
[2020-04-06] MEDS ORDERED: fentaNYL INJECTION 100 MCG/2 ML AMP ONE (09:09)
[2020-04-06] MEDS ORDERED: ACHD5005 PO (09:31)
[2020-04-06] MEDS ORDERED: LIDOCAINE PF 2% 5 ML (XYLOCAINE) VIAL ONE (09:56)
[2020-04-06] MEDS ORDERED: NEOSTIGMINE 3 MG/3 ML VIAL ONE (09:56)
[2020-04-06] MEDS ORDERED: proPOfol 200 MG/20 ML (DIPRIVAN) VIAL IV ONE (09:56)
[2020-04-06] MEDS ORDERED: GLYCOPYRROLATE 0.2 MG/ML (ROBINUL) 2 ML VIAL ONE (09:56)
[2020-04-06] MEDS ORDERED: ROCURONIUM 10 MG/ML 5 ML SYRINGE IV ONE (09:56)
[2020-04-06] MEDS ORDERED: ONDANSETRON 4 MG/2 ML (SDV) Z0FRAN ONE (09:56)
[2020-04-06] MEDS ORDERED: SEVOFLURANE (ULTANE) 15 ML INHAL SOLN ONE ×2 (09:56)
[2020-04-06] MEDS ORDERED: BUP/EPI 0.5% 1:200,000 (SENSORCAINE) 30 ML VIAL INJ ONE (10:00)
[2020-04-06] MEDS ORDERED: DOCU-143 PO (10:02)
[2020-04-06] MEDS ORDERED: HYDR-4226 PO (10:02)
--- NOTE | 2020-04-06 10:03 | Discharge Inst-Simple/Standard ---
Discharge Inst-Standard Discharge Medications New, Converted or Re-Newed RX: RX on Chart Patient Instructions/Follow Up Plan of Care/Instructions/FU: 2 weeks sarah beth Remove bandage at umbilicus at 48 hours. Activity as Tolerated: No Discharge Diet: Regular Diet Other Inst to Patient Follow up Appt: Make appointment for 2 week. Instructions: No lifting greater than 10 pounds. No strenuous activity. May shower in 24 hours, no tub bath or soaking. Use incentive spirometer at home as directed. No Smoking Skin/Wound Care: You have special glue over your incision that will fall off on it's own. Remove bandage at umbilicus at 48 hours. Symptoms to Report: Appetite Changes, Extremity Discoloration, Numbness/Tingling, Swelling Increased, Bleeding Excessive, Eyesight Changes, Pain Increased, Urine Color Change, Constipation(Persistent), Fever over 101 degree F, Pain/Pressure in chest, Urinating Difficulty, Cough Up/Vomit Blood, Heart Beat Irreg/Pounding, Pain/Pressure in jaw, Vaginal Bleeding Increase, Cramps in feet or legs, Lightheadedness, Pain/Pressure in shoulder, Diarrhea(Persistent), Memory Changes Suddenly, Questions/Concerns, Weight gain consecutive days, Dizziness/Fainting, Nausea/Vomiting, Shortness of Breath, Weight gain over 2 pounds If questions or concerns contact your physician Or seek help at emergency department. ERIK AUSTIN DO Apr 06, 2020 10:03
--- NOTE | 2020-04-06 10:07 | Progress Note-Post Operative ---
Post-Operative Progess Note Surgeon (s)/Hotel Night Auditor (s) Surgeon ERIK AUSTIN DO Hotel Night Auditor: Dr. Cox to assist in retraction dissection and closure. Pre-Operative Diagnosis umbilical hernia Post-Operative Diagnosis incarcerated umbilical hernia Procedure & Operative Findings Date of Procedure 04/06/20 Procedure Performed/Findings PROCEDURE: Laparoscopic incarcerated umbilical hernia repair with mesh. COMPLICATIONS: None. INDICATIONS: The patient is a 39, male with an umbilical hernia, which has continued to increase in size and cause discomfort. The patient was explained the risk and benefits of the procedure and wished to proceed with the procedure. Consent was signed on the chart. DESCRIPTION OF PROCEDURE: The patient was taken into the operating suite, prepped and draped in sterile fashion. Surgical pause was performed. Local anesthetic was infiltrated in left upper quadrant. A 15 blade scalpel was used to make a small skin incision. Cautery was used to dissect down to the fascia, which was then scored and divided the muscle, went through the posterior sheath and a balloon trocar was inserted into the abdomen. The abdomen was then insufflated. Incarcerated fat through defect that was present at the umbilicus. A 5 mm trocar was placed in the right lower quadrant and a 5 mm trocar was placed in left lower quadrant. Hook cautery was used to dissect fat from the anterior abdominal wall and the incarcerated fat was able to be reduced and removed. Echo Ventralight mesh was then inserted in the abdomen grabbed through the stab incision. The balloon was inflated on the mesh. Circumferential tacks were placed with a SecureStrap Tacker. The balloon was then removed and inner crown was created as well. The mesh was tacked with pressure being decreased. The 12 mm fascial defect was then closed using 0 Vicryl. The abdomen was then desufflated,the trocars were removed. The skin was then closed using 4-0 Monocryl in a running subcuticular fashion. The abdomen was washed and dried and Skin Affix was placed over the incisions. The patient tolerated procedure well without any complications. He was taken to recovery room in stable condition. Anesthesia Type general Estimated Blood Loss Estimated blood loss (mL): min Specimens/Packing Specimens Removed hernia contents ERIK AUSTIN DO Apr 06, 2020 10:07
[2020-04-06] MEDS ORDERED: HYDROmorphone 2 MG/ML VIAL (DILAUDID) ONE (10:25)
[2020-04-06] MEDS ORDERED: MEPERIDINE (DEMEROL) INJ 50 MG/ML IVP ONE (10:30)
[2020-04-06] MEDS ORDERED: PROMETHAZINE INJ 25 MG/ML (PHENERGAN) AMP IVP ONE (10:30)
[2020-04-06] MEDS ORDERED: morphine INJ 10 MG/ML 1ML (SYR OR VIAL) IVP ONE (10:30)
[2020-04-06] MEDS ORDERED: HYDROmorphone 2 MG/ML VIAL (DILAUDID) IV ONE (10:30)
[2020-04-06] MEDS ORDERED: ONDANSETRON 4 MG/2 ML (SDV) Z0FRAN IVP PRN (10:30)
[2020-04-06] MEDS ORDERED: fentaNYL INJECTION 100 MCG/2 ML AMP IVP ONE (10:30)
--- NOTE | 2020-04-12 09:51 | Anesthesia-General Post-Op ---
General Significant Intra-Op Events Notes late entry 04/06/20@ 1100 Patient Condition Mental Status/LOC: Same as Preop Cardiovascular: Satisfactory Nausea/Vomiting: Absent Respiratory: Satisfactory Pain: Controlled Complications: Absent Post Op Complications Complications None Follow Up Care/Instructions Patient Instructions None needed. Anesthesia/Patient Condition Patient Condition Patient is doing well, no complaints, stable vital signs, no apparent adverse anesthesia problems. No complications reported per nursing. SELVIN MEDINA CRNA Apr 12, 2020 09:51
== END 2020-04-06 12:05 | disposition home or self-care (01) ==
LOC: SDC 08:08
PROVIDERS: ATTEND Surgery
DX: K42.0 Umbilical hernia with obstruction, without gangrene (principal); K21.9 Gastro-esophageal reflux disease without esophagitis; E66.9 Obesity, unspecified; Z68.33 Body mass index [BMI] 33.0-33.9, adult; Z79.899 Other long term (current) drug therapy; Z87.891 Personal history of nicotine dependence; Z82.49 Family history of ischemic heart disease and other diseases of the circulatory system
CPT/HCPCS: 49653; 87081; 88302; C1781